=== PATIENT | male | born 1955 | race Caucasian/White ===

== ENCOUNTER 2019-06-19 17:52 | Emergency (ER) | payer OTHER ==
[~2019-06-19] VITALS: Ht 177.8 cm; Wt 110.0 kg
[2019-06-19] MEDS ORDERED: SODIUM CHLORIDE 0.9% 1,000 ML IV ONE (18:05)
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
[2019-06-19] MEDS ORDERED: SODIUM CHLORIDE 0.9% 1,000ML IVBOLUS ONE (18:30)
[2019-06-19] MEDS ORDERED: SODIUM CHLORIDE FLUSH 10ML SYR IVF ONE (18:30)
[2019-06-19] MEDS ORDERED: ACETAMINOPHEN 500 MG TABLET PO ONE (18:30)
[2019-06-19 18:37] LABS: BASOPHILS # (AUTO) 0.01 x10^3/uL (0-0.1); BASOPHILS % (AUTO) 0 % (0-1); EOSINOPHILS # (AUTO) 0.02 x10^3/uL (0-0.4); EOSINOPHILS % (AUTO) 0 % (1-7); LYMPHOCYTES # (AUTO) 0.52 x10^3/uL (1-3.4); LYMPHOCYTES % (AUTO) 7 % (22-44); MD NO; MEAN CORPUSCULAR HEMOGLOBIN 31.4 pg (27.5-34.5); MEAN CORPUSCULAR VOLUME 95.1 fL (81-97); MEAN PLATELET VOLUME 7.9 fL (7.4-10.4); MONOCYTES # (AUTO) 0.67 x10^3/uL (0.2-0.8); MONOCYTES % (AUTO) 9 % (2-9); NEUTROPHILS # (AUTO) 6.33 x10^3/uL (1.8-6.8); NEUTROPHILS % (AUTO) 84 % (42-75); PLATELET COUNT 160 x10^3/uL (130-400); RED BLOOD COUNT 5.31 x10^6/uL (4.38-5.82); RED CELL DISTRIBUTION WIDTH 13.6 % (9.4-14.8)
[2019-06-19 18:38] LABS: RAPID INFLUENZA A Negative (Negative); RAPID INFLUENZA B POSITIVE (Negative)
[2019-06-19] MEDS ORDERED: LISI-167 PO (18:43)
[2019-06-19] MEDS ORDERED: OMEP-110 PO (18:43)
[2019-06-19] MEDS ORDERED: METF500T17 PO (18:44)
[2019-06-19] MEDS ORDERED: ATOR40TA PO (18:44)
[2019-06-19 18:47] LABS: ALANINE AMINOTRANSFERASE 41 U/L (12-78); ALBUMIN 3.8 g/dL (3.4-5.0); ANION GAP 7 mmol/L (5-15); CALCIUM 9.1 mg/dL (8.5-10.1); CHLORIDE 108 mmol/L (98-107); CREATININE 1.77 mg/dL (0.7-1.3)
[2019-06-19 18:51] LABS: ALKALINE PHOSPHATASE 60 U/L (45-117); BILIRUBIN,TOTAL 0.7 mg/dL (0.2-1.0); TOTAL PROTEIN 7.6 g/dL (6.4-8.2)
--- NOTE | 2019-06-19 18:58 | NUR ---
Pt report from dov dewitt. This rn to assume care of pt.
[2019-06-19] MEDS ORDERED: ACETAMINOPHEN 500 MG TABLET ONE (19:06)
[2019-06-19 20:10] VITALS: BP 107/97
--- NOTE | 2019-06-19 20:31 | NUR ---
Patient discharged and understood instructions. Patient ambulated with a steady gait. Belongings with patient.
--- NOTE | 2019-06-19 20:31 | NUR ---
Second IV saline bag not required per md order and discharge instructions.
== END 2019-06-19 20:13 | disposition home or self-care (01) ==
LOC: ED 20:07
DX: J10.1 Influenza due to other identified influenza virus with other respiratory manifestations (principal); R41.82 Altered mental status, unspecified; N28.9 Disorder of kidney and ureter, unspecified; R50.81 Fever presenting with conditions classified elsewhere; E11.9 Type 2 diabetes mellitus without complications; I10 Essential (primary) hypertension; K21.9 Gastro-esophageal reflux disease without esophagitis
CPT/HCPCS: 36415; 71045; 80053; 83605; 84145; 85025; 87040; 87400; 93005; 96360; 99284; J7030

== ENCOUNTER 2020-12-09 11:02 | Inpatient (IN) | payer OTHER ==
[~2020-12-09] VITALS: Ht 177.8 cm; Wt 106.6 kg
[~2020-12-09 11:02] MED LIST: ATOR40TA PO; LISI-167 PO; METF500T17 PO; OMEP-110 PO
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
[2020-12-09] MEDS ORDERED: SODIUM CHLORIDE 0.9% 1,000 ML IV ONE (11:30)
[2020-12-09] MEDS ORDERED: SODIUM CHLORIDE FLUSH 10ML SYR IVF ONE (11:30)
[2020-12-09] MEDS ORDERED: PLEASE ENTER HEIGHT AND WEIGHT MC SCH (11:30)
[2020-12-09 12:11] LABS: BASOPHILS % (AUTO) 0 % (0-1); EOSINOPHILS % (AUTO) 0 % (1-7); LYMPHOCYTES % (AUTO) 6 % (22-44); MEAN CORPUSCULAR HEMOGLOBIN 30.3 pg (27.5-34.5); MEAN CORPUSCULAR HGB CONC 33.8 g/dL (33.2-36.2); MEAN PLATELET VOLUME 7.9 fL (7.4-10.4); MONOCYTES % (AUTO) 12 % (2-9); NEUTROPHILS % (AUTO) 81 % (42-75); PLATELET COUNT 193 x10^3/uL (130-400); RED BLOOD COUNT 5.33 x10^6/uL (4.38-5.82); RED CELL DISTRIBUTION WIDTH 13.9 % (9.4-14.8)
[2020-12-09 12:23] LABS: ALANINE AMINOTRANSFERASE 274 U/L (12-78); ANION GAP 8 mmol/L (5-15); CALCIUM 7.6 mg/dL (8.5-10.1); CHLORIDE 106 mmol/L (98-107); CREATININE 2.48 mg/dL (0.7-1.3)
[2020-12-09 12:26] LABS: INTERNATIONAL NORMALIZED RATIO 1.11 (0.93-1.1); PROTHROMBIN TIME 11.9 Seconds (9.6-11.5)
[2020-12-09 12:38] LABS: ALKALINE PHOSPHATASE 56 U/L (45-117); BILIRUBIN,TOTAL 1.6 mg/dL (0.2-1.0); TOTAL PROTEIN 5.9 g/dL (6.4-8.2)
--- NOTE | 2020-12-09 12:47 | NUR ---
PT GOING TO CT. PT AWARE OF NEED FOR URINE SAMPLE.
--- NOTE | 2020-12-09 13:41 | NUR ---
PT STATES HE DOES NOT FEEL LIKE HE CAN PROVIDE A URINE SAMPLE AT THIS TIME. PT BACK FROM IMAGING. CONNECTED TO ALL MONITORING. CALL LIGHT IN REACH.
[2020-12-09 13:44] LABS: CREATINE KINASE, TOTAL 28345 U/L (39-308)
[2020-12-09] MEDS ORDERED: TEMAZEPAM 15 MG CAPSULE PO PRN (14:30)
[2020-12-09] MEDS ORDERED: morphine SULFATE 10 MG/ML, 1ML IVPush PRN (14:30)
--- NOTE | 2020-12-09 14:49 | NUR ---
REPORT GIVEN TO ROSARIO BORJAS.
[2020-12-09 15:22] LABS: ANION GAP 6 mmol/L (5-15); CALCIUM 8.2 mg/dL (8.5-10.1); CHLORIDE 105 mmol/L (98-107); CREATININE 2.41 mg/dL (0.7-1.3)
[2020-12-09 16:45] LABS: MICROSCOPIC INDICATED
[2020-12-09] MEDS: SODIUM CHLORIDE 0.9% 1,000 ML IV SCH ×2 (16:47→22:33)
[2020-12-09 19:07] VITALS: BP 120/85
[2020-12-10 00:27] VITALS: BP 130/82
[2020-12-10] MEDS: SODIUM CHLORIDE 0.9% 1,000 ML IV SCH ×4 (04:50→23:07)
[2020-12-10 05:08] LABS: BASOPHILS % (AUTO) 0 % (0-1); EOSINOPHILS % (AUTO) 0 % (1-7); LYMPHOCYTES % (AUTO) 9 % (22-44); MEAN CORPUSCULAR HEMOGLOBIN 30.5 pg (27.5-34.5); MEAN CORPUSCULAR HGB CONC 34.1 g/dL (33.2-36.2); MEAN PLATELET VOLUME 7.8 fL (7.4-10.4); MONOCYTES % (AUTO) 11 % (2-9); NEUTROPHILS % (AUTO) 79 % (42-75); PLATELET COUNT 170 x10^3/uL (130-400); RED BLOOD COUNT 4.97 x10^6/uL (4.38-5.82); RED CELL DISTRIBUTION WIDTH 13.7 % (9.4-14.8)
[2020-12-10 05:10] LABS: CHLORIDE 110 mmol/L (98-107)
[2020-12-10 05:18] LABS: ALANINE AMINOTRANSFERASE 231 U/L (12-78); ALBUMIN 2.8 g/dL (3.4-5.0); ALKALINE PHOSPHATASE 53 U/L (45-117); ANION GAP 4 mmol/L (5-15); BILIRUBIN,TOTAL 1.4 mg/dL (0.2-1.0); CALCIUM 7.6 mg/dL (8.5-10.1); CREATININE 2.09 mg/dL (0.7-1.3); TOTAL PROTEIN 5.7 g/dL (6.4-8.2)
[2020-12-10 07:07] VITALS: BP 144/83
[2020-12-10] MEDS: ENOXAPARIN 30 MG/0.3 ML SQ SCH (09:00)
[2020-12-10 14:09] VITALS: BP 126/78
[2020-12-10 18:51] VITALS: BP 130/73
[2020-12-10] MEDS: CALCIUM CARBONATE 500 MG TAB.CHEW PO PRN (21:02)
[2020-12-11] MEDS: ONDANSETRON 2MG/ML, 2ML IVPush PRN (00:01)
[2020-12-11] MEDS: FAMOTIDINE 20 MG TABLET PO PRN ×2 (00:01→21:29)
[2020-12-11 00:08] VITALS: BP 118/69
[2020-12-11 05:21] LABS: CHLORIDE 112 mmol/L (98-107)
[2020-12-11 05:27] LABS: ALANINE AMINOTRANSFERASE 186 U/L (12-78); ALBUMIN 2.4 g/dL (3.4-5.0); ALKALINE PHOSPHATASE 53 U/L (45-117); ANION GAP 7 mmol/L (5-15); BILIRUBIN,TOTAL 1.1 mg/dL (0.2-1.0); CALCIUM 7.8 mg/dL (8.5-10.1); CREATININE 1.56 mg/dL (0.7-1.3); TOTAL PROTEIN 5.2 g/dL (6.4-8.2)
[2020-12-11] MEDS: SODIUM CHLORIDE 0.9% 1,000 ML IV SCH ×3 (05:34→14:30)
[2020-12-11] MEDS: ENOXAPARIN 30 MG/0.3 ML SQ SCH (07:18)
[2020-12-11 07:38] VITALS: BP 101/64
[2020-12-11 12:48] VITALS: BP 123/73
[2020-12-11] MEDS: ENOXAPARIN 40 MG/0.4 ML SQ SCH (16:00)
[2020-12-11 17:52] LABS: AMPHETAMINE SCREEN, URINE Negative (Negative); BARBITURATE SCREEN, URINE Negative (Negative); BENZODIAZEPINE SCREEN, URINE Negative (Negative); CANNABINOID SCREEN, URINE Negative (Negative); COCAINE SCREEN, URINE Negative (Negative); METHADONE SCREEN, URINE Negative (Negative); OPIATE SCREEN, URINE Positive (Negative)
[2020-12-11 18:55] VITALS: BP 114/74
[2020-12-11] MEDS ORDERED: GADOTERATE 10 MMOL/20ML SYR ONE (19:00)
[2020-12-12 03:01] VITALS: BP 115/74
[2020-12-12] MEDS: SODIUM CHLORIDE 0.9% 1,000 ML IV SCH ×2 (04:38→16:59)
[2020-12-12 05:53] LABS: BASOPHILS % (AUTO) 0 % (0-1); EOSINOPHILS % (AUTO) 2 % (1-7); LYMPHOCYTES % (AUTO) 15 % (22-44); MEAN CORPUSCULAR HEMOGLOBIN 30.3 pg (27.5-34.5); MEAN CORPUSCULAR HGB CONC 33.2 g/dL (33.2-36.2); MEAN PLATELET VOLUME 7.6 fL (7.4-10.4); MONOCYTES % (AUTO) 11 % (2-9); NEUTROPHILS % (AUTO) 72 % (42-75); PLATELET COUNT 160 x10^3/uL (130-400); RED BLOOD COUNT 4.43 x10^6/uL (4.38-5.82); RED CELL DISTRIBUTION WIDTH 13.6 % (9.4-14.8)
[2020-12-12 06:00] LABS: ALBUMIN 2.4 g/dL (3.4-5.0); ANION GAP 4 mmol/L (5-15); CALCIUM 8.2 mg/dL (8.5-10.1); CHLORIDE 114 mmol/L (98-107)
[2020-12-12 06:14] LABS: ALANINE AMINOTRANSFERASE 148 U/L (12-78); ALKALINE PHOSPHATASE 44 U/L (45-117); CREATININE 1.44 mg/dL (0.7-1.3); TOTAL PROTEIN 5.3 g/dL (6.4-8.2)
[2020-12-12 06:36] LABS: CREATINE KINASE, TOTAL 2898 U/L (39-308)
[2020-12-12 08:03] VITALS: BP 150/88
[2020-12-12 15:29] VITALS: BP 136/83
[2020-12-12] MEDS: ENOXAPARIN 40 MG/0.4 ML SQ SCH (16:59)
[2020-12-12 19:43] VITALS: BP 147/83
[2020-12-12] MEDS: ONDANSETRON ODT 4 MG PO PRN (20:46)
[2020-12-13 00:59] VITALS: BP 142/77
[2020-12-13 07:09] VITALS: BP 143/79
[2020-12-13 08:23] LABS: BASOPHILS % (AUTO) 1 % (0-1); EOSINOPHILS % (AUTO) 3 % (1-7); LYMPHOCYTES % (AUTO) 16 % (22-44); MEAN CORPUSCULAR HEMOGLOBIN 30.5 pg (27.5-34.5); MEAN CORPUSCULAR HGB CONC 33.8 g/dL (33.2-36.2); MEAN PLATELET VOLUME 7.1 fL (7.4-10.4); MONOCYTES % (AUTO) 11 % (2-9); NEUTROPHILS % (AUTO) 69 % (42-75); PLATELET COUNT 200 x10^3/uL (130-400); RED BLOOD COUNT 4.22 x10^6/uL (4.38-5.82); RED CELL DISTRIBUTION WIDTH 13.2 % (9.4-14.8)
[2020-12-13 08:29] LABS: ALANINE AMINOTRANSFERASE 130 U/L (12-78); ALBUMIN 2.2 g/dL (3.4-5.0); ANION GAP 4 mmol/L (5-15); BILIRUBIN, DIRECT 0.5 mg/dL (0.1-0.2); CALCIUM 7.9 mg/dL (8.5-10.1); CHLORIDE 111 mmol/L (98-107); CREATININE 1.37 mg/dL (0.7-1.3)
[2020-12-13 08:32] LABS: ALKALINE PHOSPHATASE 45 U/L (45-117); BILIRUBIN,INDIRECT 0.5 mg/dL (0.0-2.0); TOTAL PROTEIN 4.9 g/dL (6.4-8.2)
[2020-12-13] MEDS: SODIUM CHLORIDE 0.9% 1,000 ML IV SCH (09:49)
[2020-12-13 13:06] VITALS: BP 148/80
[2020-12-13] MEDS: ONDANSETRON 2MG/ML, 2ML IVPush PRN (13:22)
[2020-12-13] MEDS: ENOXAPARIN 40 MG/0.4 ML SQ SCH (16:00)
[2020-12-13 18:27] VITALS: BP 150/73
[2020-12-13] MEDS: FAMOTIDINE 20 MG TABLET PO PRN (19:23)
[2020-12-14 01:01] VITALS: BP 135/83
[2020-12-14 07:03] VITALS: BP 152/75
[2020-12-14] MEDS: CALCIUM CARBONATE 500 MG TAB.CHEW PO PRN (11:38)
[2020-12-14 15:22] VITALS: BP 122/81
[2020-12-14] MEDS: ENOXAPARIN 40 MG/0.4 ML SQ SCH (16:00)
[2020-12-14 18:42] VITALS: BP 133/75
[2020-12-14] MEDS: MELATONIN 5 MG TABLET PO SCH (21:00)
[2020-12-14] MEDS: ONDANSETRON ODT 4 MG PO PRN (21:49)
[2020-12-14] MEDS ORDERED: PHARMACY MAY ADJ FOR RENAL FX MC PRN (23:30)
[2020-12-14] MEDS ORDERED: AMPICILLIN/SULBACTAM 1,500 MG in SODIUM CHLORIDE 0.9% 50 ML IV SCH (23:30)
[2020-12-14] MEDS: AMPICILLIN/SULBACTAM 3 GM in SODIUM CHLORIDE 0.9% 100 ML IV SCH (23:44)
[2020-12-15 00:15] VITALS: BP 154/84
[2020-12-15 05:31] LABS: BASOPHILS % (AUTO) 1 % (0-1); EOSINOPHILS % (AUTO) 3 % (1-7); LYMPHOCYTES % (AUTO) 15 % (22-44); MEAN CORPUSCULAR HEMOGLOBIN 30.5 pg (27.5-34.5); MEAN CORPUSCULAR HGB CONC 34.4 g/dL (33.2-36.2); MEAN PLATELET VOLUME 7.1 fL (7.4-10.4); MONOCYTES % (AUTO) 14 % (2-9); NEUTROPHILS % (AUTO) 67 % (42-75); PLATELET COUNT 231 x10^3/uL (130-400); RED BLOOD COUNT 4.35 x10^6/uL (4.38-5.82); RED CELL DISTRIBUTION WIDTH 13.2 % (9.4-14.8)
[2020-12-15] MEDS: AMPICILLIN/SULBACTAM 3 GM in SODIUM CHLORIDE 0.9% 100 ML IV SCH ×4 (05:38→23:38)
[2020-12-15 05:45] LABS: CHLORIDE 106 mmol/L (98-107)
[2020-12-15 06:04] LABS: ALANINE AMINOTRANSFERASE 103 U/L (12-78); ALBUMIN 2.3 g/dL (3.4-5.0); ALKALINE PHOSPHATASE 48 U/L (45-117); ANION GAP 5 mmol/L (5-15); CALCIUM 8.1 mg/dL (8.5-10.1)
[2020-12-15 06:11] LABS: HCT (SEDRATE) 38.6 % (39.2-51.8)
[2020-12-15 07:33] VITALS: BP 163/85
[2020-12-15] MEDS ORDERED: GADOTERATE 10 MMOL/20ML SYR ONE (11:42)
[2020-12-15] MEDS: SUCRALFATE 1 GM/10 ML UDC PO SCH ×3 (12:29→21:03)
[2020-12-15] MEDS: SULFAMETH./TRIMETHOPRIM DS 800MG/160MG TABLET PO SCH (12:29)
[2020-12-15 12:59] VITALS: BP 135/83
[2020-12-15] MEDS ORDERED: LIDOCAINE-MPF 1%, 5ML ONE (14:05)
[2020-12-15] MEDS: ENOXAPARIN 40 MG/0.4 ML SQ SCH (16:00)
[2020-12-15 18:21] VITALS: BP 145/79
[2020-12-15] MEDS: MELATONIN 5 MG TABLET PO SCH (21:00)
[2020-12-16 00:18] VITALS: BP 154/87
[2020-12-16] MEDS: SULFAMETH./TRIMETHOPRIM DS 800MG/160MG TABLET PO SCH ×3 (00:21→22:34)
[2020-12-16] MEDS: AMPICILLIN/SULBACTAM 3 GM in SODIUM CHLORIDE 0.9% 100 ML IV SCH ×4 (05:26→23:48)
[2020-12-16] MEDS: PANTOPRAZOLE 40MG TABLET PO SCH (06:10)
[2020-12-16] MEDS: SUCRALFATE 1 GM/10 ML UDC PO SCH ×4 (07:21→22:35)
[2020-12-16 07:43] VITALS: BP 151/89
[2020-12-16] MEDS ORDERED: BISACODYL 10 MG SUPP PR PRN (11:30)
[2020-12-16] MEDS ORDERED: GADOTERATE 10 MMOL/20ML SYR ONE (12:23)
[2020-12-16 13:08] VITALS: BP 136/73
[2020-12-16] MEDS: POLYETHYLENE GLYCOL 17 GM PACKET PO PRN (14:43)
[2020-12-16] MEDS: ENOXAPARIN 40 MG/0.4 ML SQ SCH (16:00)
[2020-12-16 20:20] VITALS: BP 133/78
[2020-12-16] MEDS: ACETAMINOPHEN 325 MG TABLET PO PRN (22:34)
[2020-12-16] MEDS: MELATONIN 5 MG TABLET PO SCH (22:35)
[2020-12-17 01:30] VITALS: BP 132/79
[2020-12-17] MEDS: AMPICILLIN/SULBACTAM 3 GM in SODIUM CHLORIDE 0.9% 100 ML IV SCH ×4 (05:39→22:53)
[2020-12-17] MEDS: PANTOPRAZOLE 40MG TABLET PO SCH (05:39)
[2020-12-17] MEDS: SUCRALFATE 1 GM/10 ML UDC PO SCH ×4 (07:37→21:58)
[2020-12-17 07:55] VITALS: BP 137/83
[2020-12-17] MEDS: SULFAMETH./TRIMETHOPRIM DS 800MG/160MG TABLET PO SCH ×2 (09:14→21:58)
[2020-12-17 13:25] VITALS: BP 124/77
[2020-12-17] MEDS ORDERED: FUROSEMIDE 40 MG/4 ML IV ONE (14:30)
[2020-12-17] MEDS: ENOXAPARIN 40 MG/0.4 ML SQ SCH (15:11)
[2020-12-17 19:27] VITALS: BP 130/71
[2020-12-17] MEDS: MELATONIN 5 MG TABLET PO SCH (21:00)
[2020-12-17] MEDS: ACETAMINOPHEN 325 MG TABLET PO PRN (21:58)
[2020-12-18] MEDS: AMPICILLIN/SULBACTAM 3 GM in SODIUM CHLORIDE 0.9% 100 ML IV SCH ×3 (05:17→23:26)
[2020-12-18] MEDS: PANTOPRAZOLE 40MG TABLET PO SCH (06:51)
[2020-12-18] MEDS: SUCRALFATE 1 GM/10 ML UDC PO SCH ×4 (06:51→21:17)
[2020-12-18 07:09] VITALS: BP 134/81
[2020-12-18 07:13] LABS: BASOPHILS % (AUTO) 1 % (0-1); EOSINOPHILS % (AUTO) 3 % (1-7); LYMPHOCYTES % (AUTO) 18 % (22-44); MEAN CORPUSCULAR HEMOGLOBIN 30.6 pg (27.5-34.5); MEAN CORPUSCULAR HGB CONC 33.9 g/dL (33.2-36.2); MONOCYTES % (AUTO) 10 % (2-9); NEUTROPHILS % (AUTO) 68 % (42-75); PLATELET COUNT 241 x10^3/uL (130-400); RED CELL DISTRIBUTION WIDTH 13.4 % (9.4-14.8)
[2020-12-18 07:21] LABS: ALBUMIN 2.7 g/dL (3.4-5.0); ANION GAP 3 mmol/L (5-15); CALCIUM 8.6 mg/dL (8.5-10.1); CHLORIDE 106 mmol/L (98-107)
[2020-12-18 07:25] LABS: ALANINE AMINOTRANSFERASE 72 U/L (12-78); ALKALINE PHOSPHATASE 63 U/L (45-117); BILIRUBIN,TOTAL 0.7 mg/dL (0.2-1.0); CREATININE 1.88 mg/dL (0.7-1.3); TOTAL PROTEIN 5.7 g/dL (6.4-8.2)
[2020-12-18] MEDS: SULFAMETH./TRIMETHOPRIM DS 800MG/160MG TABLET PO SCH (09:10)
[2020-12-18 12:38] VITALS: BP 130/82
[2020-12-18] MEDS ORDERED: PHARMACY MAY ADJ FOR RENAL FX MC PRN (14:00)
[2020-12-18] MEDS ORDERED: VANCOMYCIN PER PHARMACY MC PRN (14:00)
[2020-12-18] MEDS ORDERED: PHARMACOKINETIC CONSULTATION MC ONE (14:30)
[2020-12-18] MEDS ORDERED: PHARMACOKINETIC MONITORING MC PRN (14:30)
[2020-12-18] MEDS ORDERED: VANCOMYCIN 2,500 MG in SODIUM CHLORIDE 0.9% 500 ML IV ONE (14:30)
[2020-12-18] MEDS: ENOXAPARIN 40 MG/0.4 ML SQ SCH (17:03)
[2020-12-18 19:51] VITALS: BP 135/85
[2020-12-18] MEDS: MELATONIN 5 MG TABLET PO SCH (21:17)
[2020-12-19 01:06] VITALS: BP 126/74
[2020-12-19] MEDS: PANTOPRAZOLE 40MG TABLET PO SCH (05:38)
[2020-12-19 06:32] VITALS: BP 142/77
[2020-12-19 07:16] LABS: BASOPHILS % (AUTO) 1 % (0-1); EOSINOPHILS % (AUTO) 3 % (1-7); LYMPHOCYTES % (AUTO) 17 % (22-44); MEAN CORPUSCULAR HGB CONC 34.3 g/dL (33.2-36.2); MEAN PLATELET VOLUME 6.8 fL (7.4-10.4); MONOCYTES % (AUTO) 9 % (2-9); NEUTROPHILS % (AUTO) 70 % (42-75); PLATELET COUNT 242 x10^3/uL (130-400); RED BLOOD COUNT 4.19 x10^6/uL (4.38-5.82); RED CELL DISTRIBUTION WIDTH 13.3 % (9.4-14.8)
[2020-12-19 07:27] LABS: ANION GAP 4 mmol/L (5-15); CALCIUM 8.9 mg/dL (8.5-10.1); CHLORIDE 107 mmol/L (98-107); CREATININE 1.87 mg/dL (0.7-1.3)
[2020-12-19] MEDS: SUCRALFATE 1 GM/10 ML UDC PO SCH ×4 (08:07→20:45)
[2020-12-19] MEDS: AMPICILLIN/SULBACTAM 3 GM in SODIUM CHLORIDE 0.9% 100 ML IV SCH ×2 (10:50→23:22)
[2020-12-19 14:05] VITALS: BP 127/81
[2020-12-19] MEDS ORDERED: VANCOMYCIN 2,000 MG in SODIUM CHLORIDE 0.9% 500 ML IV SCH (15:00)
[2020-12-19] MEDS ORDERED: VANCOMYCIN 1,700 MG in SODIUM CHLORIDE 0.9% 250 ML IV SCH (15:00)
[2020-12-19] MEDS: ENOXAPARIN 40 MG/0.4 ML SQ SCH (15:26)
[2020-12-19] MEDS: MELATONIN 5 MG TABLET PO SCH (20:45)
[2020-12-19 20:49] VITALS: BP 133/85
[2020-12-20 00:23] VITALS: BP 125/75
[2020-12-20] MEDS: PANTOPRAZOLE 40MG TABLET PO SCH (05:04)
[2020-12-20 05:43] LABS: BASOPHILS % (AUTO) 1 % (0-1); EOSINOPHILS % (AUTO) 3 % (1-7); LYMPHOCYTES % (AUTO) 21 % (22-44); MEAN CORPUSCULAR HEMOGLOBIN 30.6 pg (27.5-34.5); MEAN CORPUSCULAR HGB CONC 34.1 g/dL (33.2-36.2); MONOCYTES % (AUTO) 9 % (2-9); NEUTROPHILS % (AUTO) 66 % (42-75); PLATELET COUNT 240 x10^3/uL (130-400); RED BLOOD COUNT 4.32 x10^6/uL (4.38-5.82); RED CELL DISTRIBUTION WIDTH 13.4 % (9.4-14.8)
[2020-12-20 05:56] LABS: ALBUMIN 2.7 g/dL (3.4-5.0); ANION GAP 4 mmol/L (5-15); CALCIUM 8.6 mg/dL (8.5-10.1); CHLORIDE 106 mmol/L (98-107)
[2020-12-20 06:00] LABS: ALANINE AMINOTRANSFERASE 63 U/L (12-78); ALKALINE PHOSPHATASE 58 U/L (45-117); BILIRUBIN,TOTAL 0.7 mg/dL (0.2-1.0); TOTAL PROTEIN 5.6 g/dL (6.4-8.2)
[2020-12-20] MEDS: SUCRALFATE 1 GM/10 ML UDC PO SCH ×4 (06:21→20:32)
[2020-12-20 07:56] VITALS: BP 123/73
[2020-12-20] MEDS: CLINDAMYCIN 150 MG CAPSULE PO SCH ×3 (10:26→20:32)
[2020-12-20 13:08] VITALS: BP 113/71
[2020-12-20] MEDS: ENOXAPARIN 40 MG/0.4 ML SQ SCH (16:00)
[2020-12-20 19:57] VITALS: BP 138/84
[2020-12-20] MEDS: MELATONIN 5 MG TABLET PO SCH (20:32)
[2020-12-21 01:27] VITALS: BP 131/78
[2020-12-21] MEDS: SUCRALFATE 1 GM/10 ML UDC PO SCH ×4 (06:03→20:51)
[2020-12-21] MEDS: PANTOPRAZOLE 40MG TABLET PO SCH (06:03)
[2020-12-21 08:09] VITALS: BP 122/71
[2020-12-21] MEDS: CLINDAMYCIN 150 MG CAPSULE PO SCH ×3 (10:28→20:54)
[2020-12-21 12:29] VITALS: BP 122/82
[2020-12-21] MEDS: ENOXAPARIN 40 MG/0.4 ML SQ SCH (15:53)
[2020-12-21 19:55] VITALS: BP 125/86
[2020-12-21] MEDS: MELATONIN 5 MG TABLET PO SCH (20:54)
[2020-12-22 00:45] VITALS: BP 112/63
[2020-12-22] MEDS: PANTOPRAZOLE 40MG TABLET PO SCH (05:29)
[2020-12-22 05:58] LABS: BASOPHILS % (AUTO) 1 % (0-1); EOSINOPHILS % (AUTO) 3 % (1-7); LYMPHOCYTES % (AUTO) 22 % (22-44); MEAN CORPUSCULAR HGB CONC 34.4 g/dL (33.2-36.2); MEAN PLATELET VOLUME 7.5 fL (7.4-10.4); MONOCYTES % (AUTO) 10 % (2-9); NEUTROPHILS % (AUTO) 63 % (42-75); PLATELET COUNT 237 x10^3/uL (130-400); RED BLOOD COUNT 4.59 x10^6/uL (4.38-5.82); RED CELL DISTRIBUTION WIDTH 13.7 % (9.4-14.8)
[2020-12-22 06:11] LABS: ALANINE AMINOTRANSFERASE 63 U/L (12-78); ALBUMIN 2.9 g/dL (3.4-5.0); ANION GAP 6 mmol/L (5-15); CALCIUM 9.2 mg/dL (8.5-10.1); CHLORIDE 107 mmol/L (98-107); CREATININE 1.64 mg/dL (0.7-1.3)
[2020-12-22 06:13] LABS: ALKALINE PHOSPHATASE 65 U/L (45-117); BILIRUBIN,TOTAL 0.6 mg/dL (0.2-1.0); TOTAL PROTEIN 5.9 g/dL (6.4-8.2)
[2020-12-22 07:00] VITALS: BP 132/84
[2020-12-22] MEDS: CLINDAMYCIN 150 MG CAPSULE PO SCH ×3 (09:28→20:27)
[2020-12-22] MEDS: SUCRALFATE 1 GM/10 ML UDC PO SCH ×4 (09:29→20:27)
[2020-12-22] MEDS: ENOXAPARIN 40 MG/0.4 ML SQ SCH (11:33)
[2020-12-22 12:09] VITALS: BP 131/79
[2020-12-22 19:17] VITALS: BP 121/80
[2020-12-22] MEDS: MELATONIN 5 MG TABLET PO SCH (20:27)
[2020-12-23 01:13] VITALS: BP 118/77
[2020-12-23] MEDS: PANTOPRAZOLE 40MG TABLET PO SCH (05:52)
[2020-12-23] MEDS: SUCRALFATE 1 GM/10 ML UDC PO SCH ×4 (05:52→20:48)
[2020-12-23 06:12] VITALS: BP 106/69
[2020-12-23] MEDS: CLINDAMYCIN 150 MG CAPSULE PO SCH ×3 (09:13→20:49)
[2020-12-23 13:11] VITALS: BP 107/67
[2020-12-23] MEDS: ENOXAPARIN 40 MG/0.4 ML SQ SCH (16:14)
[2020-12-23 18:59] VITALS: BP 114/68
[2020-12-23] MEDS: MELATONIN 5 MG TABLET PO SCH (20:49)
[2020-12-24 00:33] VITALS: BP 127/77
[2020-12-24] MEDS: PANTOPRAZOLE 40MG TABLET PO SCH (06:06)
[2020-12-24 06:50] VITALS: BP 118/68
[2020-12-24] MEDS: SUCRALFATE 1 GM/10 ML UDC PO SCH ×4 (09:22→20:42)
[2020-12-24] MEDS: CLINDAMYCIN 150 MG CAPSULE PO SCH ×3 (09:22→20:42)
[2020-12-24 14:03] VITALS: BP 134/79
[2020-12-24] MEDS: ENOXAPARIN 40 MG/0.4 ML SQ SCH (15:49)
[2020-12-24 19:32] VITALS: BP 122/77
[2020-12-24] MEDS: MELATONIN 5 MG TABLET PO SCH (20:42)
[2020-12-25 00:36] VITALS: BP 116/72
[2020-12-25] MEDS: PANTOPRAZOLE 40MG TABLET PO SCH (06:06)
[2020-12-25] MEDS: SUCRALFATE 1 GM/10 ML UDC PO SCH ×4 (06:06→20:56)
[2020-12-25 07:29] VITALS: BP 129/70
[2020-12-25 13:56] VITALS: BP 128/70
[2020-12-25] MEDS: ENOXAPARIN 40 MG/0.4 ML SQ SCH (15:50)
[2020-12-25 20:00] VITALS: BP 162/81
[2020-12-25] MEDS: MELATONIN 5 MG TABLET PO SCH (20:55)
[2020-12-26 01:28] VITALS: BP 121/84
[2020-12-26] MEDS: PANTOPRAZOLE 40MG TABLET PO SCH (05:56)
[2020-12-26 07:06] VITALS: BP 121/72
[2020-12-26] MEDS: SUCRALFATE 1 GM/10 ML UDC PO SCH ×4 (08:54→21:11)
[2020-12-26] MEDS: ENOXAPARIN 40 MG/0.4 ML SQ SCH (16:00)
[2020-12-26 16:41] VITALS: BP 133/90
[2020-12-26 20:11] VITALS: BP 137/77
[2020-12-26] MEDS: MELATONIN 5 MG TABLET PO SCH (21:11)
[2020-12-27 01:06] VITALS: BP 125/71
[2020-12-27 05:23] LABS: CREATININE 1.72 mg/dL (0.7-1.3)
[2020-12-27] MEDS: PANTOPRAZOLE 40MG TABLET PO SCH (05:46)
[2020-12-27 07:12] VITALS: BP 122/72
[2020-12-27] MEDS: SUCRALFATE 1 GM/10 ML UDC PO SCH ×4 (07:26→21:08)
[2020-12-27 12:08] VITALS: BP 139/94
[2020-12-27] MEDS: ENOXAPARIN 40 MG/0.4 ML SQ SCH ×2 (16:00→17:01)
[2020-12-27 18:53] VITALS: BP 135/99
[2020-12-27] MEDS: MELATONIN 5 MG TABLET PO SCH (21:08)
[2020-12-28 00:01] VITALS: BP 107/70
[2020-12-28] MEDS: PANTOPRAZOLE 40MG TABLET PO SCH (05:36)
[2020-12-28 06:55] VITALS: BP 127/83
[2020-12-28] MEDS: SUCRALFATE 1 GM/10 ML UDC PO SCH ×4 (08:52→21:24)
[2020-12-28 12:45] VITALS: BP 124/85
[2020-12-28] MEDS: ENOXAPARIN 40 MG/0.4 ML SQ SCH (16:00)
[2020-12-28 18:52] VITALS: BP 147/70
[2020-12-28] MEDS ORDERED: ATORVASTATIN 40 MG TABLET PO SCH (21:00)
[2020-12-28] MEDS: MELATONIN 5 MG TABLET PO SCH (21:24)
[2020-12-29 01:59] VITALS: BP 115/69
[2020-12-29] MEDS: PANTOPRAZOLE 40MG TABLET PO SCH (05:12)
[2020-12-29 05:50] LABS: CHLORIDE 111 mmol/L (98-107)
[2020-12-29 05:58] LABS: ANION GAP 5 mmol/L (5-15); CALCIUM 8.7 mg/dL (8.5-10.1); CREATININE 1.66 mg/dL (0.7-1.3)
[2020-12-29 07:15] VITALS: BP 141/62
[2020-12-29] MEDS: SUCRALFATE 1 GM/10 ML UDC PO SCH ×4 (07:44→21:26)
[2020-12-29 12:30] VITALS: BP 132/83
[2020-12-29] MEDS ORDERED: ROSU10TA26 PO (13:04)
[2020-12-29] MEDS ORDERED: SUCR1ORA5 PO (13:04)
[2020-12-29] MEDS: ENOXAPARIN 40 MG/0.4 ML SQ SCH (16:00)
[2020-12-29 20:01] VITALS: BP 153/85
[2020-12-29] MEDS: MELATONIN 5 MG TABLET PO SCH (21:26)
[2020-12-30 01:23] VITALS: BP 118/74
[2020-12-30] MEDS: PANTOPRAZOLE 40MG TABLET PO SCH (06:26)
[2020-12-30] MEDS: SUCRALFATE 1 GM/10 ML UDC PO SCH ×4 (06:27→20:18)
[2020-12-30 07:23] VITALS: BP 144/86
[2020-12-30 14:25] VITALS: BP 132/85
[2020-12-30] MEDS: ENOXAPARIN 40 MG/0.4 ML SQ SCH (16:14)
[2020-12-30] MEDS: MELATONIN 5 MG TABLET PO SCH (20:18)
[2020-12-30 20:24] VITALS: BP 138/88
[2020-12-31 01:52] VITALS: BP 123/82
[2020-12-31] MEDS: PANTOPRAZOLE 40MG TABLET PO SCH (05:29)
[2020-12-31 07:03] VITALS: BP 129/79
[2020-12-31] MEDS: SUCRALFATE 1 GM/10 ML UDC PO SCH ×4 (08:25→20:31)
[2020-12-31 13:56] VITALS: BP 124/80
[2020-12-31] MEDS: ENOXAPARIN 40 MG/0.4 ML SQ SCH (16:00)
[2020-12-31 20:28] VITALS: BP 137/84
[2020-12-31] MEDS: MELATONIN 5 MG TABLET PO SCH (20:31)
[2021-01-01 00:48] VITALS: BP 107/60
[2021-01-01] MEDS: PANTOPRAZOLE 40MG TABLET PO SCH (05:36)
[2021-01-01 06:58] VITALS: BP 121/77
[2021-01-01] MEDS: SUCRALFATE 1 GM/10 ML UDC PO SCH ×4 (07:36→21:15)
[2021-01-01 14:03] VITALS: BP 121/73
[2021-01-01] MEDS: ENOXAPARIN 40 MG/0.4 ML SQ SCH (15:57)
[2021-01-01] MEDS: MELATONIN 5 MG TABLET PO SCH (21:15)
[2021-01-01 21:17] VITALS: BP 153/87
[2021-01-02 03:18] VITALS: BP 130/83
[2021-01-02 05:38] LABS: CREATININE 1.63 mg/dL (0.7-1.3)
[2021-01-02] MEDS: PANTOPRAZOLE 40MG TABLET PO SCH (05:44)
[2021-01-02 07:20] VITALS: BP 122/69
[2021-01-02] MEDS: SUCRALFATE 1 GM/10 ML UDC PO SCH ×4 (07:26→20:29)
[2021-01-02 13:11] VITALS: BP 133/85
[2021-01-02] MEDS: ENOXAPARIN 40 MG/0.4 ML SQ SCH (16:00)
[2021-01-02 18:33] VITALS: BP 135/87
[2021-01-02] MEDS: MELATONIN 5 MG TABLET PO SCH (20:29)
[2021-01-03 01:35] VITALS: BP 127/78
[2021-01-03] MEDS: PANTOPRAZOLE 40MG TABLET PO SCH (05:28)
[2021-01-03 06:40] VITALS: BP 134/87
[2021-01-03] MEDS: SUCRALFATE 1 GM/10 ML UDC PO SCH ×4 (07:30→20:19)
[2021-01-03] MEDS: CYCLOBENZAPRINE 10 MG TABLET PO PRN (07:34)
[2021-01-03] MEDS: ENOXAPARIN 40 MG/0.4 ML SQ SCH (15:17)
[2021-01-03 16:00] VITALS: BP 122/67
[2021-01-03 18:46] VITALS: BP 148/90
[2021-01-03] MEDS: MELATONIN 5 MG TABLET PO SCH (20:20)
[2021-01-04 01:07] VITALS: BP 120/75
[2021-01-04] MEDS: PANTOPRAZOLE 40MG TABLET PO SCH (05:51)
[2021-01-04 07:05] VITALS: BP 154/89
[2021-01-04] MEDS: SUCRALFATE 1 GM/10 ML UDC PO SCH ×4 (08:13→20:37)
[2021-01-04] MEDS: CYCLOBENZAPRINE 10 MG TABLET PO PRN ×3 (08:13→19:41)
[2021-01-04 13:49] VITALS: BP 152/75
[2021-01-04] MEDS: ENOXAPARIN 40 MG/0.4 ML SQ SCH (15:14)
[2021-01-04 19:30] VITALS: BP 134/80
[2021-01-04] MEDS: MELATONIN 5 MG TABLET PO SCH (20:37)
[2021-01-05 01:26] VITALS: BP 135/92
[2021-01-05] MEDS: CYCLOBENZAPRINE 10 MG TABLET PO PRN ×3 (01:48→19:52)
[2021-01-05] MEDS: PANTOPRAZOLE 40MG TABLET PO SCH (05:07)
[2021-01-05] MEDS: ACETAMINOPHEN 325 MG TABLET PO PRN ×2 (05:07→14:34)
[2021-01-05 05:11] LABS: BASOPHILS % (AUTO) 1 % (0-1); EOSINOPHILS % (AUTO) 2 % (1-7); LYMPHOCYTES % (AUTO) 17 % (22-44); MEAN CORPUSCULAR HEMOGLOBIN 30.7 pg (27.5-34.5); MEAN CORPUSCULAR HGB CONC 33.9 g/dL (33.2-36.2); MONOCYTES % (AUTO) 12 % (2-9); NEUTROPHILS % (AUTO) 68 % (42-75); PLATELET COUNT 193 x10^3/uL (130-400); RED BLOOD COUNT 4.53 x10^6/uL (4.38-5.82)
[2021-01-05 05:19] LABS: ANION GAP 10 mmol/L (5-15); CALCIUM 9.1 mg/dL (8.5-10.1); CHLORIDE 107 mmol/L (98-107); CREATININE 1.76 mg/dL (0.7-1.3)
[2021-01-05 07:15] VITALS: BP 136/88
[2021-01-05] MEDS: SUCRALFATE 1 GM/10 ML UDC PO SCH ×4 (08:13→20:57)
[2021-01-05] MEDS: ENOXAPARIN 40 MG/0.4 ML SQ SCH (16:51)
[2021-01-05 17:00] VITALS: BP 145/88
[2021-01-05 18:53] VITALS: BP 126/77
[2021-01-05] MEDS: GABAPENTIN 300 MG CAPSULE PO SCH (20:57)
[2021-01-05] MEDS: MELATONIN 5 MG TABLET PO SCH (20:59)
[2021-01-06 00:13] VITALS: BP 135/75
[2021-01-06] MEDS: PANTOPRAZOLE 40MG TABLET PO SCH (05:31)
[2021-01-06 07:00] VITALS: BP 136/85
[2021-01-06] MEDS: GABAPENTIN 300 MG CAPSULE PO SCH ×3 (08:43→20:22)
[2021-01-06] MEDS: SUCRALFATE 1 GM/10 ML UDC PO SCH ×4 (08:43→20:22)
[2021-01-06] MEDS: CYCLOBENZAPRINE 10 MG TABLET PO PRN (12:28)
[2021-01-06 13:16] VITALS: BP 113/81
[2021-01-06] MEDS: ENOXAPARIN 40 MG/0.4 ML SQ SCH (17:36)
[2021-01-06 19:53] VITALS: BP 149/88
[2021-01-06] MEDS: MELATONIN 5 MG TABLET PO SCH (20:23)
[2021-01-07 00:10] VITALS: BP 136/84
[2021-01-07] MEDS: SUCRALFATE 1 GM/10 ML UDC PO SCH ×4 (06:05→20:33)
[2021-01-07] MEDS: PANTOPRAZOLE 40MG TABLET PO SCH (06:05)
[2021-01-07 08:08] VITALS: BP 134/86
[2021-01-07] MEDS: GABAPENTIN 300 MG CAPSULE PO SCH ×3 (08:18→20:33)
[2021-01-07 14:51] VITALS: BP 132/80
[2021-01-07] MEDS: ENOXAPARIN 40 MG/0.4 ML SQ SCH (16:09)
[2021-01-07 19:16] VITALS: BP 120/76
[2021-01-07] MEDS: MELATONIN 5 MG TABLET PO SCH (20:34)
[2021-01-08] VITALS (12 sets, daily range): BP systolic 125–154; BP diastolic 72–90
[2021-01-08 05:26] LABS: ANION GAP 7 mmol/L (5-15); CALCIUM 9.1 mg/dL (8.5-10.1); CHLORIDE 107 mmol/L (98-107); CREATININE 1.54 mg/dL (0.7-1.3)
[2021-01-08] MEDS: PANTOPRAZOLE 40MG TABLET PO SCH (06:08)
[2021-01-08] MEDS: ACETAMINOPHEN 325 MG TABLET PO PRN (06:08)
[2021-01-08] MEDS: SUCRALFATE 1 GM/10 ML UDC PO SCH ×4 (06:08→22:02)
[2021-01-08] MEDS ORDERED: ACETAMINOPHEN 325 MG TABLET PO PRN (09:00)
[2021-01-08] MEDS: GABAPENTIN 300 MG CAPSULE PO SCH ×3 (09:30→22:02)
[2021-01-08] MEDS: LACTOBACILLUS CHEW TABLET PO SCH ×3 (09:30→22:02)
[2021-01-08] MEDS: CYCLOBENZAPRINE 10 MG TABLET PO PRN (10:17)
--- NOTE | 2021-01-08 10:43 | NUR ---
MIKE OG - Fall Risk Medication(s) present and receiving anticoagulants. Signed: 01/08/21 at 1043 by Chevy CARRILLO
[2021-01-08] MEDS: ENOXAPARIN 40 MG/0.4 ML SQ SCH (16:29)
[2021-01-08] MEDS: MELATONIN 5 MG TABLET PO SCH (22:02)
[2021-01-09 00:24] VITALS: BP 129/82
[2021-01-09] MEDS: PANTOPRAZOLE 40MG TABLET PO SCH (05:34)
[2021-01-09] MEDS: SUCRALFATE 1 GM/10 ML UDC PO SCH ×4 (07:00→21:16)
[2021-01-09 07:22] VITALS: BP 129/89
[2021-01-09] MEDS: GABAPENTIN 300 MG CAPSULE PO SCH ×3 (10:34→21:16)
[2021-01-09] MEDS: LACTOBACILLUS CHEW TABLET PO SCH ×3 (10:34→21:16)
[2021-01-09] MEDS: BISACODYL 10 MG SUPP PR SCH ×2 (10:35→13:46)
[2021-01-09 13:43] VITALS: BP 128/83
[2021-01-09] MEDS: ENOXAPARIN 40 MG/0.4 ML SQ SCH (17:02)
[2021-01-09 19:12] VITALS: BP 145/96
[2021-01-09] MEDS: MELATONIN 5 MG TABLET PO SCH (21:16)
[2021-01-09] MEDS: SENNA 176 MG/5 ML ORAL SOL NG SCH (21:18)
[2021-01-10 01:24] VITALS: BP 143/85
[2021-01-10] MEDS: PANTOPRAZOLE 40MG TABLET PO SCH (05:40)
[2021-01-10] MEDS: SUCRALFATE 1 GM/10 ML UDC PO SCH ×4 (07:28→20:27)
[2021-01-10 07:35] VITALS: BP 134/90
[2021-01-10] MEDS: LACTOBACILLUS CHEW TABLET PO SCH ×3 (10:18→20:27)
[2021-01-10] MEDS: CARVEDILOL 3.125 MG TABLET PO SCH ×2 (10:18→17:31)
[2021-01-10] MEDS: GABAPENTIN 300 MG CAPSULE PO SCH ×3 (10:18→20:27)
[2021-01-10] MEDS: BISACODYL 10 MG SUPP PR SCH (11:51)
[2021-01-10 13:01] VITALS: BP 120/85
[2021-01-10] MEDS: ENOXAPARIN 40 MG/0.4 ML SQ SCH (17:32)
[2021-01-10 18:50] VITALS: BP 145/91
[2021-01-10] MEDS: SENNA 176 MG/5 ML ORAL SOL NG SCH (20:28)
[2021-01-10] MEDS: MELATONIN 5 MG TABLET PO SCH (20:28)
[2021-01-11 00:03] VITALS: BP 133/88
[2021-01-11] MEDS: CYCLOBENZAPRINE 10 MG TABLET PO PRN (00:34)
[2021-01-11 05:48] VITALS: BP 150/90
[2021-01-11] MEDS: CARVEDILOL 3.125 MG TABLET PO SCH ×2 (05:49→18:20)
[2021-01-11] MEDS: PANTOPRAZOLE 40MG TABLET PO SCH (05:49)
[2021-01-11 07:40] VITALS: BP 144/88
[2021-01-11] MEDS: SUCRALFATE 1 GM/10 ML UDC PO SCH ×4 (07:53→20:09)
[2021-01-11] MEDS: BISACODYL 10 MG SUPP PR SCH (09:07)
[2021-01-11] MEDS: POLYETHYLENE GLYCOL 17 GM PACKET PO PRN (09:08)
[2021-01-11] MEDS: GABAPENTIN 300 MG CAPSULE PO SCH ×3 (09:09→22:48)
[2021-01-11] MEDS: LACTOBACILLUS CHEW TABLET PO SCH ×3 (09:09→22:48)
[2021-01-11 15:55] VITALS: BP 137/84
[2021-01-11] MEDS: ENOXAPARIN 40 MG/0.4 ML SQ SCH (16:51)
[2021-01-11 18:38] VITALS: BP 142/85
[2021-01-11] MEDS: SENNA 176 MG/5 ML ORAL SOL NG SCH (20:02)
[2021-01-11] MEDS: MELATONIN 5 MG TABLET PO SCH (20:09)
[2021-01-11] MEDS: LOSARTAN 50MG TABLET PO SCH (20:09)
[2021-01-12 00:02] VITALS: BP 131/83
[2021-01-12 05:35] LABS: ANION GAP 6 mmol/L (5-15); CHLORIDE 107 mmol/L (98-107); CREATININE 1.56 mg/dL (0.7-1.3)
[2021-01-12 05:37] VITALS: BP 115/80
[2021-01-12] MEDS: CARVEDILOL 3.125 MG TABLET PO SCH ×2 (05:39→16:48)
[2021-01-12] MEDS: PANTOPRAZOLE 40MG TABLET PO SCH (05:39)
[2021-01-12] MEDS: BISACODYL 10 MG SUPP PR SCH (07:48)
[2021-01-12] MEDS: LACTOBACILLUS CHEW TABLET PO SCH ×3 (07:48→20:30)
[2021-01-12] MEDS: GABAPENTIN 300 MG CAPSULE PO SCH ×3 (07:48→20:30)
[2021-01-12] MEDS: SUCRALFATE 1 GM/10 ML UDC PO SCH ×4 (07:48→20:30)
[2021-01-12 08:53] VITALS: BP 116/78
[2021-01-12 15:33] VITALS: BP 125/89
[2021-01-12] MEDS: ENOXAPARIN 40 MG/0.4 ML SQ SCH (16:51)
[2021-01-12 20:24] VITALS: BP 132/80
[2021-01-12] MEDS: MELATONIN 5 MG TABLET PO SCH (20:30)
[2021-01-12] MEDS: LOSARTAN 50MG TABLET PO SCH (20:30)
[2021-01-12] MEDS: SENNA 176 MG/5 ML ORAL SOL NG SCH (20:31)
[2021-01-13 00:31] VITALS: BP 120/82
[2021-01-13] MEDS: CARVEDILOL 3.125 MG TABLET PO SCH ×2 (05:22→18:20)
[2021-01-13] MEDS: PANTOPRAZOLE 40MG TABLET PO SCH (05:22)
[2021-01-13 07:07] VITALS: BP 132/87
[2021-01-13] MEDS: POLYETHYLENE GLYCOL 17 GM PACKET PO PRN (08:04)
[2021-01-13] MEDS: SUCRALFATE 1 GM/10 ML UDC PO SCH ×4 (08:04→20:03)
[2021-01-13] MEDS: BISACODYL 10 MG SUPP PR SCH (08:04)
[2021-01-13] MEDS: LACTOBACILLUS CHEW TABLET PO SCH ×3 (08:04→20:00)
[2021-01-13] MEDS: GABAPENTIN 300 MG CAPSULE PO SCH ×3 (08:04→20:00)
[2021-01-13] MEDS: CARBIDOPA/LEVODOPA 25 MG/100 MG TABLET PO SCH ×3 (12:04→20:00)
[2021-01-13 13:27] VITALS: BP 108/73
[2021-01-13] MEDS: ENOXAPARIN 40 MG/0.4 ML SQ SCH (16:17)
[2021-01-13 19:50] VITALS: BP 123/78
[2021-01-13] MEDS: LOSARTAN 50MG TABLET PO SCH (19:59)
[2021-01-13] MEDS: MELATONIN 5 MG TABLET PO SCH (19:59)
[2021-01-13 20:00] VITALS: BP 126/75
[2021-01-13] MEDS: SENNA 176 MG/5 ML ORAL SOL NG SCH (20:00)
[2021-01-14 00:22] VITALS: BP 116/79
[2021-01-14] MEDS: CARVEDILOL 3.125 MG TABLET PO SCH ×2 (05:10→17:03)
[2021-01-14] MEDS: PANTOPRAZOLE 40MG TABLET PO SCH (05:12)
[2021-01-14 07:01] VITALS: BP 120/81
[2021-01-14] MEDS: SUCRALFATE 1 GM/10 ML UDC PO SCH ×4 (07:46→20:22)
[2021-01-14] MEDS: BISACODYL 10 MG SUPP PR SCH (08:58)
[2021-01-14] MEDS: LACTOBACILLUS CHEW TABLET PO SCH ×3 (09:02→20:22)
[2021-01-14] MEDS: GABAPENTIN 300 MG CAPSULE PO SCH ×3 (09:02→20:22)
[2021-01-14] MEDS: CARBIDOPA/LEVODOPA 25 MG/100 MG TABLET PO SCH ×3 (09:02→20:23)
[2021-01-14] MEDS: HEPARIN 5,000 UNITS/ML, 1ML SQ SCH ×3 (09:03→23:47)
[2021-01-14 13:50] VITALS: BP 121/82
[2021-01-14 17:00] VITALS: BP 105/65
[2021-01-14 20:15] VITALS: BP 103/70
[2021-01-14] MEDS: LOSARTAN 50MG TABLET PO SCH (20:23)
[2021-01-14] MEDS: MELATONIN 5 MG TABLET PO SCH (20:26)
[2021-01-14] MEDS: SENNA 176 MG/5 ML ORAL SOL NG SCH (20:32)
[2021-01-15 00:49] VITALS: BP 97/64
[2021-01-15] MEDS: PANTOPRAZOLE 40MG TABLET PO SCH (05:13)
[2021-01-15] MEDS: CARVEDILOL 3.125 MG TABLET PO SCH ×2 (05:14→16:53)
[2021-01-15 05:15] VITALS: BP 98/64
[2021-01-15 08:12] VITALS: BP 115/73
[2021-01-15] MEDS ORDERED: BISACODYL 10 MG SUPP PR PRN (08:30)
[2021-01-15] MEDS: HEPARIN 5,000 UNITS/ML, 1ML SQ SCH ×2 (09:00→16:12)
[2021-01-15] MEDS: SUCRALFATE 1 GM/10 ML UDC PO SCH ×4 (09:01→20:36)
[2021-01-15] MEDS: LACTOBACILLUS CHEW TABLET PO SCH ×3 (09:01→20:36)
[2021-01-15] MEDS: GABAPENTIN 300 MG CAPSULE PO SCH ×2 (09:01→16:13)
[2021-01-15 12:36] LABS: BASOPHILS % (AUTO) 0 % (0-1); EOSINOPHILS % (AUTO) 0 % (1-7); LYMPHOCYTES % (AUTO) 6 % (22-44); MEAN CORPUSCULAR HEMOGLOBIN 30.4 pg (27.5-34.5); MEAN CORPUSCULAR HGB CONC 33.6 g/dL (33.2-36.2); MEAN PLATELET VOLUME 7.3 fL (7.4-10.4); MONOCYTES % (AUTO) 8 % (2-9); NEUTROPHILS % (AUTO) 85 % (42-75); PLATELET COUNT 228 x10^3/uL (130-400); RED BLOOD COUNT 4.62 x10^6/uL (4.38-5.82); RED CELL DISTRIBUTION WIDTH 14.1 % (9.4-14.8)
[2021-01-15 12:41] LABS: ANION GAP 7 mmol/L (5-15); CALCIUM 8.4 mg/dL (8.5-10.1); CHLORIDE 108 mmol/L (98-107); CREATININE 1.67 mg/dL (0.7-1.3)
[2021-01-15 14:25] VITALS: BP 104/72
[2021-01-15 16:52] VITALS: BP 119/71
[2021-01-15 18:30] VITALS: BP 133/72
[2021-01-15] MEDS: MELATONIN 5 MG TABLET PO SCH (20:36)
[2021-01-15] MEDS: LOSARTAN 50MG TABLET PO SCH (20:36)
[2021-01-15] MEDS: GABAPENTIN 100 MG CAPSULE PO SCH (20:36)
[2021-01-15] MEDS: SENNA 176 MG/5 ML ORAL SOL NG SCH (20:36)
[2021-01-16] MEDS: HEPARIN 5,000 UNITS/ML, 1ML SQ SCH ×3 (00:50→18:04)
[2021-01-16 01:00] VITALS: BP 100/67
[2021-01-16 03:27] VITALS: BP 98/68
[2021-01-16] MEDS ORDERED: SODIUM CHLORIDE 0.9%, 500ML IVBOLUS ONE ×2 (04:30→12:30)
[2021-01-16 04:45] LABS: MICROSCOPIC INDICATED
[2021-01-16 05:12] LABS: BASOPHILS % (AUTO) 0 % (0-1); EOSINOPHILS % (AUTO) 0 % (1-7); LYMPHOCYTES % (AUTO) 7 % (22-44); MEAN CORPUSCULAR HEMOGLOBIN 30.4 pg (27.5-34.5); MEAN CORPUSCULAR HGB CONC 33.9 g/dL (33.2-36.2); MEAN PLATELET VOLUME 7.1 fL (7.4-10.4); MONOCYTES % (AUTO) 10 % (2-9); NEUTROPHILS % (AUTO) 84 % (42-75); PLATELET COUNT 233 x10^3/uL (130-400); RED CELL DISTRIBUTION WIDTH 14.1 % (9.4-14.8)
[2021-01-16 05:26] LABS: ANION GAP 6 mmol/L (5-15); CALCIUM 8.1 mg/dL (8.5-10.1); CHLORIDE 105 mmol/L (98-107)
[2021-01-16 05:27] LABS: CREATININE 2.31 mg/dL (0.7-1.3)
[2021-01-16] MEDS: CARVEDILOL 3.125 MG TABLET PO SCH ×2 (05:47→18:00)
[2021-01-16] MEDS: PANTOPRAZOLE 40MG TABLET PO SCH (05:47)
[2021-01-16 05:48] VITALS: BP 98/65
[2021-01-16 06:05] VITALS: BP 91/62
[2021-01-16] MEDS ORDERED: PHARMACOKINETIC CONSULTATION MC ONE (07:00)
[2021-01-16] MEDS ORDERED: VANCOMYCIN 2,500 MG in SODIUM CHLORIDE 0.9% 500 ML IV ONE (07:00)
[2021-01-16] MEDS ORDERED: PHARMACOKINETIC MONITORING MC PRN (07:00)
[2021-01-16] MEDS: SUCRALFATE 1 GM/10 ML UDC PO SCH ×4 (07:50→21:19)
[2021-01-16] MEDS: LACTOBACILLUS CHEW TABLET PO SCH ×3 (07:51→21:19)
[2021-01-16] MEDS: GABAPENTIN 100 MG CAPSULE PO SCH ×3 (07:51→21:19)
[2021-01-16] MEDS ORDERED: PIPERACILLIN/TAZO 3.375 GM in DEXTROSE 5% 50 ML IV SCH (08:00)
[2021-01-16] MEDS ORDERED: VANCOMYCIN PER PHARMACY MC PRN (09:00)
[2021-01-16 12:04] VITALS: BP 91/60
[2021-01-16] MEDS: SODIUM CHLORIDE 0.9% 1,000 ML IV SCH (13:05)
[2021-01-16] MEDS: PIPERACILLIN/TAZO 2.25 GM in DEXTROSE 5% 50 ML IV SCH (18:05)
[2021-01-16 18:38] VITALS: BP 86/61
[2021-01-16] MEDS ORDERED: LOSARTAN 50MG TABLET PO SCH (21:00)
[2021-01-16] MEDS: MELATONIN 5 MG TABLET PO SCH (21:04)
[2021-01-16] MEDS: SENNA 176 MG/5 ML ORAL SOL NG SCH (21:15)
[2021-01-17] VITALS (8 sets, daily range): BP systolic 76–85; BP diastolic 54–60
[2021-01-17] MEDS: HEPARIN 5,000 UNITS/ML, 1ML SQ SCH ×3 (00:09→15:31)
[2021-01-17] MEDS: PIPERACILLIN/TAZO 2.25 GM in DEXTROSE 5% 50 ML IV SCH ×4 (00:09→19:50)
[2021-01-17] MEDS: SODIUM CHLORIDE 0.9% 1,000 ML IV SCH ×3 (02:43→15:31)
[2021-01-17] MEDS ORDERED: SODIUM CHLORIDE 0.9% 1,000ML IVBOLUS ONE ×3 (05:45→23:30)
[2021-01-17] MEDS: PANTOPRAZOLE 40MG TABLET PO SCH (05:57)
[2021-01-17] MEDS: CARVEDILOL 3.125 MG TABLET PO SCH (05:57)
[2021-01-17] MEDS: SUCRALFATE 1 GM/10 ML UDC PO SCH ×4 (07:00→21:00)
[2021-01-17 07:54] LABS: ANION GAP 11 mmol/L (5-15); CALCIUM 7.4 mg/dL (8.5-10.1); CHLORIDE 109 mmol/L (98-107); CREATININE 3.19 mg/dL (0.7-1.3)
[2021-01-17 07:55] LABS: MEAN CORPUSCULAR HEMOGLOBIN 30.3 pg (27.5-34.5); MEAN CORPUSCULAR HGB CONC 33.1 g/dL (33.2-36.2); MEAN PLATELET VOLUME 8.3 fL (7.4-10.4); PLATELET COUNT 344 x10^3/uL (130-400); RED CELL DISTRIBUTION WIDTH 14.2 % (9.4-14.8)
[2021-01-17 08:08] LABS: <PLATELET ESTIMATE> ADEQUATE; <PLT MORPHOLOGY> NORMAL PLT MORPH; BAND#(MANUAL) 4.52 x10^3/uL; BANDS%(MANUAL) 13 % (0-7); LYMPHS% (MANUAL) 2 % (22-44); MONOS#(MANUAL) 3.48 x10^3/uL (0.3-2.7); MONOS% (MANUAL) 10 % (2-9); SEGS% (MANUAL) 75 % (42-75)
[2021-01-17 08:09] LABS: PMNS WITH VACUOLES 1+
[2021-01-17 08:10] LABS: POLYCHROMASIA 1+
[2021-01-17 09:13] LABS: CLOSTRIDIUM DIFFICILE ANTIGEN POSITIVE; CLOSTRIDIUM DIFFICILE TOXIN POSITIVE (Negative)
[2021-01-17 09:16] LABS: ALBUMIN 1.5 g/dL (3.4-5.0); BILIRUBIN, DIRECT 0.1 mg/dL (0.1-0.2)
[2021-01-17 09:18] LABS: BILIRUBIN,INDIRECT 0.4 mg/dL (0.0-2.0); BILIRUBIN,TOTAL 0.5 mg/dL (0.2-1.0); TOTAL PROTEIN 5.4 g/dL (6.4-8.2)
[2021-01-17] MEDS ORDERED: ALBUMIN HUMAN 25% 100 ML ONE (09:54)
[2021-01-17] MEDS: LACTOBACILLUS CHEW TABLET PO SCH ×3 (09:57→21:00)
[2021-01-17] MEDS: ALBUMIN HUMAN 25% 100 ML IV SCH ×2 (09:58→16:40)
[2021-01-17] MEDS: VANCOMYCIN 50 MG/ML ORAL SUSP PO SCH ×3 (09:58→21:00)
[2021-01-17] MEDS: METRONIDAZOLE PMX 500MG/100ML 100 ML IV SCH ×2 (10:45→18:06)
[2021-01-17] MEDS: NOREPINEPHRINE 8 MG in SODIUM CHLORIDE 0.9% 242 ML IV PRN (12:07)
[2021-01-17] MEDS ORDERED: SODIUM CHLORIDE 0.9% 1,000 ML IV SCH (17:30)
[2021-01-17] MEDS ORDERED: CALCIUM CHLORIDE 13.6 MEQ in SODIUM CHLORIDE 0.9% 100 ML IV ONE (17:30)
[2021-01-17] MEDS ORDERED: VANCOMYCIN 1,500 MG in SODIUM CHLORIDE 0.9% 250 ML IV ONE (19:00)
[2021-01-17] MEDS: SENNA 176 MG/5 ML ORAL SOL NG SCH (19:27)
[2021-01-17] MEDS: MELATONIN 5 MG TABLET PO SCH (21:00)
[2021-01-17] MEDS ORDERED: FAMOTIDINE 20 MG/2 ML IVPush SCH (21:00)
[2021-01-17] MEDS ORDERED: NOREPINEPHRINE 1 MG/ML, 4ML ONE (23:10)
[2021-01-17] MEDS ORDERED: VASOPRESSIN 20 UNIT in SODIUM CHLORIDE 0.9% 99 ML IV PRN (23:30)
[2021-01-17] MEDS ORDERED: SODIUM BICARBONATE 1 MEQ/ML, 50ML VIAL IVPush ONE (23:30)
[2021-01-17] MEDS ORDERED: SODIUM BICARBONATE 1 MEQ/ML, 50ML VIAL ONE (23:31)
[2021-01-18] MEDS: HEPARIN 5,000 UNITS/ML, 1ML SQ SCH
[2021-01-18] MEDS: ALBUMIN HUMAN 25% 100 ML IV SCH (00:16)
[2021-01-18] MEDS: NOREPINEPHRINE 8 MG in SODIUM CHLORIDE 0.9% 242 ML IV PRN (00:25)
[2021-01-18 00:29] LABS: ANION GAP 21 mmol/L (5-15); CALCIUM 7.4 mg/dL (8.5-10.1); CHLORIDE 115 mmol/L (98-107); CREATININE 4.55 mg/dL (0.7-1.3)
[2021-01-18] MEDS ORDERED: SODIUM BICARBONATE 8.4% 150 MEQ in DEXTROSE 5% 1,000 ML IV SCH (00:30)
[2021-01-18] MEDS ORDERED: PHENYLEPHRINE 50 MG in SODIUM CHLORIDE 0.9% 245 ML IV PRN (00:30)
[2021-01-18] MEDS ORDERED: SODIUM BICARBONATE 1 MEQ/ML, 50ML VIAL IVPush ONE ×3 (00:30→02:30)
[2021-01-18] MEDS ORDERED: SODIUM ZIRCONIUM CYCLOSILICATE 10 GM PO ONE (01:00)
[2021-01-18] MEDS ORDERED: NOREPINEPHRINE 32 MG in SODIUM CHLORIDE 0.9% 218 ML IV PRN (01:00)
[2021-01-18] MEDS: PIPERACILLIN/TAZO 2.25 GM in DEXTROSE 5% 50 ML IV SCH (01:41)
[2021-01-18 02:05] LABS: MEAN CORPUSCULAR HEMOGLOBIN 30.1 pg (27.5-34.5); MEAN CORPUSCULAR HGB CONC 31.6 g/dL (33.2-36.2); PLATELET COUNT 108 x10^3/uL (130-400); RED CELL DISTRIBUTION WIDTH 14.5 % (9.4-14.8)
[2021-01-18 02:54] LABS: BAND#(MANUAL) 13.07 x10^3/uL; BANDS%(MANUAL) 13 % (0-7); EOS#(MANUAL) 1.01 x10^3/uL (0.0-0.4); EOS% (MANUAL) 1 % (1-7); LYMPH#(MANUAL) 6.03 x10^3/uL (1-3.4); LYMPHS% (MANUAL) 6 % (22-44); METAMYELOCYTES# (MANUAL) 1.01 x10^3/uL (0-0); METAMYELOCYTES% (MANUAL) 1 % (0-1); MONOS#(MANUAL) 3.02 x10^3/uL (0.3-2.7); MONOS% (MANUAL) 3 % (2-9); MYELOCYTES# (MANUAL) 6.03 x10^3/uL (0-0); MYELOCYTES% (MANUAL) 6 % (0-0); PROGRANULOCYTES# (MANUAL) 2.01 x10^3/uL (0-0); PROGRANULOCYTES% (MANUAL) 2 % (0-0); SEG#(MANUAL) 66.33 x10^3/uL (1.8-6.8); SEGS% (MANUAL) 66 % (42-75)
[2021-01-18 02:56] LABS: OTHER CELLS # (MANUAL) 2.01 x10^3/uL (0-0); OTHER CELLS % (MANUAL) 2 % (0-0)
[2021-01-18 02:57] LABS: ANISOCYTOSIS 1+; ECHINOCYTES 1+; POLYCHROMASIA 1+
[2021-01-18 02:59] LABS: <PLATELET ESTIMATE> DECREASED; <PLT MORPHOLOGY> NORMAL PLT MORPH; ACANTHOCYTES 1+
[2021-01-18] MEDS: METRONIDAZOLE PMX 500MG/100ML 100 ML IV SCH (02:59)
[2021-01-18] MEDS ORDERED: DEXTROSE 50%, 50ML VIAL IVPush ONE (03:00)
[2021-01-18] MEDS ORDERED: SODIUM POLYSTYRENE SULFONATE ORAL SUSP PR SCH (03:00)
[2021-01-18] MEDS ORDERED: INSULIN LISPRO 100 UNIT/ML, 3ML VIAL IVPush ONE (03:00)
[2021-01-18] MEDS ORDERED: CALCIUM GLUCONATE 4.6 MEQ/10 ML IVPush ONE (03:00)
[2021-01-18] MEDS ORDERED: INSULIN REGULAR 100 UNITS/ML, 3ML VIAL IVPush ONE (03:30)
== END 2021-01-18 03:40 | disposition expired | DRG 557 ==
LOC: ED 12:41 → EDIP 13:19 → SUATTDRO 13:34 → 4NW 14:45 → 3N 12-18 14:10 → CCU 01-17 08:48
PROVIDERS: ADMIT Hospitalist; ATTEND Hospitalist
PROC: 00JU3ZZ Inspection of Spinal Canal, Percutaneous Approach (ICD-10-PCS; 2020-12-15)
PROC: 5A09357 Assistance with Respiratory Ventilation, Less than 24 Consecutive Hours, Continuous Positive Airway Pressure (ICD-10-PCS; 2020-12-16)
PROC: 0T9B70Z Drainage of Bladder with Drainage Device, Via Natural or Artificial Opening (ICD-10-PCS; principal; 2021-01-16)
PROC: 02HV33Z Insertion of Infusion Device into Superior Vena Cava, Percutaneous Approach (ICD-10-PCS; 2021-01-17)
PROC: B548ZZA Ultrasonography of Superior Vena Cava, Guidance (ICD-10-PCS; 2021-01-17)
DX: M62.82 Rhabdomyolysis (principal); A41.9 Sepsis, unspecified organism; R65.21 Severe sepsis with septic shock; E43 Unspecified severe protein-calorie malnutrition; N17.9 Acute kidney failure, unspecified; L03.115 Cellulitis of right lower limb; A04.72 Enterocolitis due to Clostridium difficile, not specified as recurrent; G93.40 Encephalopathy, unspecified; E87.2 Acidosis; B95.61 Methicillin susceptible Staphylococcus aureus infection as the cause of diseases classified elsewhere; L89.150 Pressure ulcer of sacral region, unstageable; I12.9 Hypertensive chronic kidney disease with stage 1 through stage 4 chronic kidney disease, or unspecified chronic kidney disease; E11.22 Type 2 diabetes mellitus with diabetic chronic kidney disease; N18.30 Chronic kidney disease, stage 3 unspecified; E86.0 Dehydration; M48.02 Spinal stenosis, cervical region; D72.823 Leukemoid reaction; E66.9 Obesity, unspecified; E78.5 Hyperlipidemia, unspecified; E87.5 Hyperkalemia; F32.9 Major depressive disorder, single episode, unspecified; F43.20 Adjustment disorder, unspecified; G20 Parkinson's disease; G31.84 Mild cognitive impairment of uncertain or unknown etiology; G47.33 Obstructive sleep apnea (adult) (pediatric); I46.9 Cardiac arrest, cause unspecified; K21.9 Gastro-esophageal reflux disease without esophagitis; K59.00 Constipation, unspecified; M47.812 Spondylosis without myelopathy or radiculopathy, cervical region; M48.061 Spinal stenosis, lumbar region without neurogenic claudication; R13.10 Dysphagia, unspecified; R62.7 Adult failure to thrive; S20.224A Contusion of middle back wall of thorax, initial encounter; M54.9 Dorsalgia, unspecified; G89.29 Other chronic pain; S20.219A Contusion of unspecified front wall of thorax, initial encounter; W18.30XA Fall on same level, unspecified, initial encounter; Z66 Do not resuscitate; Z91.19 Patient's noncompliance with other medical treatment and regimen; Z68.33 Body mass index [BMI] 33.0-33.9, adult
CPT/HCPCS: 36415; 36600; 73060; 73610; 74018; 74220; 84145; 99291; J3370; 36573; 62328; 70450; 70553; 71045; 71250; 72125; 72128; 72131; 72156; 72158; 80048; 80053; 80076; 80202; 80307; 81001; 82533; 82550; 82565; 82607; 82803; 82962; 83036; 83605; 83690; 83735; 84100; 84134; 84443; 85025; 85610; 85651; 86140; 87040; 87070; 87077; 87081; 87086; 87186; 87205; 87324; 93005; 95819; G0378; J0295; J1644; J1650; J1940; J2405; J2543; J7070; P9047; Q0162; 92522-GN; A9575; C1751; J2270; J2370; J7030; J7040; J7050